=== PATIENT | male | born 1980 | race Caucasian/White ===

== ENCOUNTER → 2016-11-03 | Outpatient (REF) | payer BC ==
[2016-11-03 12:19] LABS: ALBUMIN 4.3 GM/DL (3.2-5.2); ALBUMIN/GLOBULIN RATIO 1.39 (1.00-1.93); ALKALINE PHOSPHATASE 75 U/L (45-117); ALT/SGPT 25 U/L (12-78); ANION GAP 7 MEQ/L (8-16); AST/SGOT 14 U/L (15-37); BILIRUBIN,TOTAL 0.9 MG/DL (0.2-1.0); BLOOD UREA NITROGEN 12 MG/DL (7-18); CALCIUM LEVEL 9.2 MG/DL (8.5-10.1); CARBON DIOXIDE LEVEL 32 MEQ/L (21-32); CHLORIDE LEVEL 104 MEQ/L (98-107); CHOLESTEROL LEVEL 208 MG/DL (<200); CREATININE FOR GFR 0.78 MG/DL (0.70-1.30); GLOMERULAR FILTRATION RATE > 60.0 (>60); GLUCOSE, FASTING 102 MG/DL (70-105); SODIUM LEVEL 143 MEQ/L (136-145); TOTAL PROTEIN 7.4 GM/DL (6.4-8.2); TRIGLYCERIDES LEVEL 166 MG/DL (<150)
== END ==
LOC: M SFHCPLAZ 09:21
PROVIDERS: ATTEND Physician Assistant
DX: E78.4 Other hyperlipidemia (principal)

== ENCOUNTER → 2019-01-28 | Outpatient (CLI) | payer BC ==
--- NOTE | 2019-01-28 12:08 | REP ---
LUMBAR SPINE SERIES: Five views. HISTORY: Pain. No known injury. No comparison radiographs. FINDINGS: There is straightening of the normal lumbar lordosis. Lumbar vertebral body heights are preserved. There is degenerative disc narrowing at L3-4 and to a lesser extent L4-5. Discogenic spurring is seen anteriorly at the L3-4 level. Some bilateral L3-4 discogenic spurring is seen as well. There is no evidence of spondylolysis or spondylolisthesis. Sacrum and SI joints appear intact. Psoas margins are symmetric. There are clips in right upper quadrant post cholecystectomy. Some respiratory motion artifact is seen. IMPRESSION: Degenerative disc disease at L3-4 and to a lesser extent, L4-5. No acute bony abnormality. Straightening. Electronically Signed by Angel Hirsch MD 01/28/2019 12:18 P
== END ==
LOC: M WUC 09:46
PROVIDERS: ATTEND Nurse Practitioner Family
DX: M51.36 Other intervertebral disc degeneration, lumbar region (principal)

== ENCOUNTER → 2019-05-13 | Outpatient (REF) | payer BC ==
[2019-05-13 18:01] LABS: APPEARANCE, URINE CLEAR (CLEAR); BACTERIA, URINE AUTO NEGATIVE (NEGATIVE); BILIRUBIN, URINE AUTO NEGATIVE (NEGATIVE); BLOOD, URINE BLOOD NEGATIVE (NEGATIVE); COLOR, URINE YELLOW (YELLOW); GLUCOSE, URINE (UA) AUTO NEGATIVE (NEGATIVE); KETONE, URINE AUTO NEGATIVE (NEGATIVE); LEUKOCYTE ESTERASE, URINE AUTO NEGATIVE (NEGATIVE); MUCUS, URINE SMALL (NEGATIVE); NITRITE, URINE AUTO NEGATIVE (NEGATIVE); PROTEIN, URINE AUTO NEGATIVE (NEGATIVE); RBC, URINE AUTO 0 /HPF (0-3); SPECIFIC GRAVITY URINE AUTO 1.024 (1.002-1.035); SQUAMOUS EPITHELIAL CELL UR AU 0 /HPF (0-6); UROBILINOGEN, URINE AUTO 0.2 mg/dL (0.0-2.0); WBC, URINE AUTO 0 /HPF (0-3)
[2019-05-13 18:47] LABS: BLOOD UREA NITROGEN 12 MG/DL (7-18); CALCIUM LEVEL 8.5 MG/DL (8.5-10.1); CARBON DIOXIDE LEVEL 31 MEQ/L (21-32); CHLORIDE LEVEL 104 MEQ/L (98-107); CHOLESTEROL LEVEL 197 MG/DL (<200); CHOLESTEROL RISK RATIO 5.969 (<5); CREATININE FOR GFR 0.75 MG/DL (0.70-1.30); GLOMERULAR FILTRATION RATE > 60.0 (>60); GLUCOSE, FASTING 99 MG/DL (70-100); HDL CHOLESTEROL 33 MG/DL (>40); NON-HDL-C 164 MG/DL; POTASSIUM SERUM 4.4 MEQ/L (3.5-5.1); SODIUM LEVEL 139 MEQ/L (136-145); TRIGLYCERIDES LEVEL 634 MG/DL (<150)
== END ==
LOC: M SFHCPLAZ 14:52
PROVIDERS: ATTEND Obstetrics & Gynecology
DX: E78.49 Other hyperlipidemia (principal); Z13.1 Encounter for screening for diabetes mellitus; I10 Essential (primary) hypertension

== ENCOUNTER → 2019-06-14 | Outpatient (CLI) | payer BC ==
--- NOTE | 2019-06-18 08:35 | SLEEPHOME ---
DATE OF STUDY: 06/14/2019 ORDERED BY: Dr. Kaminski Diagnostic home sleep testing was performed due to concern for the obstructive sleep apnea syndrome in this patient with comorbidity of hypertension. For testing, a nocturnal T3 respiratory monitoring device was used. Continuous record was made of pulse, oxygen saturation, airflow, chest and abdominal strain and body position. 9 hours and 59 minutes of data were reviewed. 9 hours and 52 minutes were marked as time in bed. During the interval marked time in bed, there were 178 respiratory events identified of 10 seconds in duration or greater for a respiratory event index of 18. The events were obstructive. Baseline pulse rate 69, pulse rate ranged 52-102. Baseline saturation was 93%, saturations fell as low as 70%. Testing was performed in both the supine and nonsupine positions. IMPRESSION: Abnormal home sleep testing with repetitive respiratory events and oxygen desaturations to 70% with a respiratory event index of 18 is consistent with the obstructive sleep apnea syndrome. RECOMMENDATION: The patient should be encouraged to undergo formal sleep evaluation and referral to facilitate this. Likely, pressure titration will be necessary.
== END ==
LOC: M SLEEP HO 09:55
PROVIDERS: ATTEND Obstetrics & Gynecology
DX: I10 Essential (primary) hypertension (principal)

== ENCOUNTER → 2019-08-12 | Outpatient (CLI) | payer BC ==
--- NOTE | 2019-08-16 17:20 | SLEEPCENT ---
DATE OF PROCEDURE: 08/12/2019 ORDERED BY: CANELO Pena Nocturnal polysomnography was performed for evaluation of sleep physiology in this patient with a history of excessive somnolence, snoring, nonrestorative sleep, and abnormal home testing who has comorbidities of hypertension. 8 hours and 15 minutes of data were reviewed. There were 423.5 minutes of sleep identified. Sleep latency was prolonged at 54.5 minutes. Rapid eye movement (REM) latency was normal at 64 minutes. Sleep architecture was fairly good with 4 REM cycles. There was some fragmentation noted. Overall sleep efficiency was 86.3%. The electrocardiogram showed a sinus rhythm with an average heart rate of 68 beats per minute. Rate ranged 60-82. Electroencephalogram (EEG) showed mild coarsening in the background of non-REM stages. No focal events identified. There were 173 respiratory events identified of 10 seconds in duration or greater for an apnea-hypopnea index of 24.5. The events were primarily obstructive not exclusive to sleep stage nor body posture. Arousals from respiratory events were seen 2.6 times per hour and oxygen desaturations were seen into the 70s. There was minimal activity in the limb leads and remaining measures of sleep physiology were normal. IMPRESSION: Obstructive sleep apnea syndrome (G47.33). Apnea-hypopnea index 24.5. RECOMMENDATIONS: The patient should be encouraged to return to the sleep disorder center for pressure therapy. In the interim, alcohol and sedative avoidance should be practiced and caution exercised during operation of motor vehicles.
== END ==
LOC: M SLEEP 20:00
PROVIDERS: ATTEND Nurse Practitioner Family
DX: G47.33 Obstructive sleep apnea (adult) (pediatric) (principal)

== ENCOUNTER → 2020-03-05 | Outpatient (CLI) | payer BC ==
--- NOTE | 2020-03-10 10:27 | SLEEPCENT ---
NOCTURNAL POLYSOMNOGRAPHY DATE: 03/05/2020 ORDERED BY: MARLEN Pena Nocturnal polysomnography was performed for the titration of pressure therapy in this patient with obstructive sleep apnea syndrome with apnea-hypopnea index of 24.5. For testing a ResMed AirFit F20 full face mask of medium size was used, 4 cm of water pressure were applied to the circuit, and the lights were extinguished. 7 hours and 28 minutes of data were reviewed. There were 376 minutes of sleep identified. Sleep latency was prolonged at 52.5 minutes. REM latency was short at 55 minutes. Sleep architecture was good with three REM cycles noted. Overall sleep efficiency was 85%. The electrocardiogram showed a sinus rhythm with an average heart rate of 62 beats per minute. Rate range 55 to 85. EEG showed normal waveforms for wake and sleep stages. Respiratory events were best palliated with CPAP at a pressure of +12 with some minor limb activity, particularly early in the study. The limb movement arousal index on this occasion was 2.5. IMPRESSION: Obstructive sleep apnea syndrome (G47.33). RECOMMENDATION: Nightly use of pressure therapy 12 cm of water.
== END ==
LOC: M SLEEP 20:00
PROVIDERS: ATTEND Nurse Practitioner Family
DX: G47.33 Obstructive sleep apnea (adult) (pediatric) (principal)

== ENCOUNTER → 2020-03-13 | Outpatient (CLI) | payer SELFPAY ==
[~2020-03-13] MED LIST: ALLE1TAB23; CEPH500C PO; OLME20TA2
== END ==
LOC: M LABSMTC 13:11
PROVIDERS: ATTEND Pediatrics
DX: Z20.822 Contact with and (suspected) exposure to COVID-19 (principal)

== ENCOUNTER 2020-03-27 17:13 | Emergency (ER) | payer BC ==
[~2020-03-27] VITALS: Ht 185.4 cm; Wt 123.6 kg
[2020-03-27] MEDS ORDERED: OLME20TA2 (17:35)
[2020-03-27] MEDS ORDERED: ALLE1TAB23 (17:35)
--- NOTE | 2020-03-27 18:07 | REP ---
INDICATION: injury to thumb from a ladder COMPARISON: None. TECHNIQUE: Four views right 1st digit. FINDINGS: There is dorsal dislocation of the 1st distal phalanx. No fracture is seen. IMPRESSION: Dorsal dislocation of the 1st distal phalanx. <Electronically signed by Coleman Azul > 03/27/20 [id number]
[2020-03-27] MEDS ORDERED: LIDOCAINE 1% MDV 20ML VIAL SC ONE (19:30)
[2020-03-27] MEDS ORDERED: cefTRIAXone SOD 1 GM in D5W MINI-BAG PLUS 50 ML IV ONE (19:45)
[2020-03-27] MEDS ORDERED: BOOSTRIX/ADACEL VACCINE (DIPHTH/PERTUSS/ACELL/TETANUS) 0.5ML SYR IM ONE (19:45)
[2020-03-27] MEDS ORDERED: cefTRIAXone SOD 1GM VIAL (J0696 PER 250MG) IM ONE (20:15)
[2020-03-27] MEDS ORDERED: LIDOCAINE 1% SDV 5ML VIAL DILUENT ONE (20:15)
[2020-03-27] MEDS ORDERED: NEOSPORIN OINT 0.9 GM PKT TOP ONE (20:15)
[2020-03-27] MEDS ORDERED: ACETAMINOPHEN 500 MG TAB PO ONE (20:45)
--- NOTE | 2020-03-27 20:48 | REPVR ---
PROCEDURE INFORMATION: Exam: XR Left Finger(s) Exam date and time: 03/27/2020 8:36 PM Age: 40 years old Clinical indication: Other: Post reduction; Additional info: Post reduction thumb TECHNIQUE: Imaging protocol: XR Left fingers. Views: Minimum 2 views. COMPARISON: CR Fingers 03/27/2020 5:42 PM FINDINGS: Anatomic reduction of the prior IP joint dislocation of the thumb, with osseous structures aligned normally. No fracture fragment or asymmetric joint space widening to suggest interposed soft tissue. MCP and CMC joints of the thumb show normal alignment. IMPRESSION: Anatomic alignment of the thumb dislocation with no residual deformity or fracture Electronically signed by: Anirudh Hogan On 03/27/2020 20:48:23 PM
[2020-03-27] MEDS ORDERED: CEPH500C PO (20:51)
[2020-03-27 21:25] VITALS: BP 131/77
== END 2020-03-27 21:37 | disposition home or self-care (01) ==
LOC: M ED 17:13
DX: S63.102A Unspecified subluxation of left thumb, initial encounter (principal); S61.012A Laceration without foreign body of left thumb without damage to nail, initial encounter; W11.XXXA Fall on and from ladder, initial encounter; Y92.018 Other place in single-family (private) house as the place of occurrence of the external cause; I10 Essential (primary) hypertension; Z79.899 Other long term (current) drug therapy
CPT/HCPCS: 12001; 26641; 73140; 90471; 90715; 96372; 99283; J0696

== ENCOUNTER → 2020-04-07 | Outpatient (REF) | payer BC | LOC: M SFHCPLAZ 15:53 | PROVIDERS: ATTEND Family Medicine | DX: Z13.220 Encounter for screening for lipoid disorders (principal); Z13.1 Encounter for screening for diabetes mellitus ==

== ENCOUNTER → 2020-04-20 | Outpatient (REF) | payer BC ==
[2020-04-20 16:05] LABS: CHOLESTEROL LEVEL 206 MG/DL (<200); CHOLESTEROL RISK RATIO 6.058 (<5); HDL CHOLESTEROL 34 MG/DL (>40); NON-HDL-C 172 MG/DL; TRIGLYCERIDES LEVEL 411 MG/DL (<150)
[2020-04-20 19:30] LABS: HEMOGLOBIN A1c 6.2 %
== END ==
LOC: M SFHCPLAZ 11:33
PROVIDERS: ATTEND Family Medicine
DX: Z13.220 Encounter for screening for lipoid disorders (principal); Z13.1 Encounter for screening for diabetes mellitus

== ENCOUNTER → 2020-10-15 | Outpatient (CLI) | payer BC ==
[2020-10-15 14:10] LABS: BASO % 0.4 % (0.0-1.0); EOS # 0.1 10^3/uL (0.0-0.5); EOS % 1.8 % (0.0-3.0); HEMATOCRIT 45.5 % (42.0-52.0); HEMOGLOBIN 14.9 g/dl (13.5-17.5); LYMPH # 2.3 10^3/uL (1.5-5.0); LYMPH % 30.8 % (24.0-44.0); MEAN CORPUSCULAR HEMOGLOBIN 30.8 pg (27.0-33.0); MEAN CORPUSCULAR HGB CONC 32.7 g/dl (32.0-36.5); MEAN CORPUSCULAR VOLUME 94.2 fl (80.0-96.0); MONO # 0.6 10^3/uL (0.0-0.8); MONO % 7.6 % (2.0-8.0); NEUTROPHILS # 4.4 10^3/uL (1.5-8.5); PLATELET COUNT, AUTOMATED 205 10^3/uL (150-450); RED BLOOD COUNT 4.83 10^6/uL (4.30-6.10); WHITE BLOOD COUNT 7.4 10^3/uL (4.0-10.0)
[2020-10-15 15:11] LABS: ERYTHROCYTE SEDIMENTATION RATE 6 mm/hr (0-15)
[2020-10-15 16:38] LABS: ALT/SGPT 40 U/L (12-78); BILIRUBIN,TOTAL 0.7 MG/DL (0.2-1.0); BLOOD UREA NITROGEN 13 MG/DL (7-18); CALCIUM LEVEL 9.4 MG/DL (8.5-10.1); CARBON DIOXIDE LEVEL 32 MEQ/L (21-32); CHLORIDE LEVEL 104 MEQ/L (98-107); CREATININE FOR GFR 0.73 MG/DL (0.70-1.30); GLOMERULAR FILTRATION RATE > 60.0 (>60); GLUCOSE, FASTING 108 MG/DL (70-100); LIPASE 147 U/L (73-393); POTASSIUM SERUM 4.7 MEQ/L (3.5-5.1); SODIUM LEVEL 139 MEQ/L (136-145); TOTAL PROTEIN 6.9 GM/DL (6.4-8.2)
== END ==
LOC: M PLALAB 10:22
PROVIDERS: ATTEND Physician Assistant
DX: R10.33 Periumbilical pain (principal)

== ENCOUNTER → 2021-01-13 | Outpatient (CLI) | payer BC ==
[2021-01-13 11:41] LABS: BASO % 0.3 % (0.0-1.0); EOS # 0.1 10^3/uL (0.0-0.5); EOS % 1.4 % (0.0-3.0); HEMATOCRIT 43.4 % (42.0-52.0); HEMOGLOBIN 14.7 g/dl (13.5-17.5); LYMPH # 1.9 10^3/uL (1.5-5.0); LYMPH % 32.1 % (24.0-44.0); MEAN CORPUSCULAR HEMOGLOBIN 30.6 pg (27.0-33.0); MEAN CORPUSCULAR HGB CONC 33.9 g/dl (32.0-36.5); MEAN CORPUSCULAR VOLUME 90.4 fl (80.0-96.0); MONO # 0.4 10^3/uL (0.0-0.8); MONO % 6.9 % (2.0-8.0); NEUTROPHILS # 3.5 10^3/uL (1.5-8.5); PLATELET COUNT, AUTOMATED 182 10^3/uL (150-450); WHITE BLOOD COUNT 5.9 10^3/uL (4.0-10.0)
[2021-01-13 12:48] LABS: FREE T4 0.89 NG/DL (0.76-1.46); THYROID STIMULATING HORMONE 0.563 uIU/ML (0.358-3.740)
[2021-01-15 19:07] LABS: Lyme Disease IgG/IgM Antibodie <0.91 ISR (0.00-0.90); Lyme Disease IgM Ab Quantitati <0.80 index (0.00-0.79)
== END ==
LOC: M PLALAB 09:17
PROVIDERS: ATTEND Student in an Organized Health Care Education/Training Program
DX: R53.83 Other fatigue (principal)

== ENCOUNTER → 2021-01-13 | Outpatient (REF) | payer BC | LOC: M SFHCPLAZ 09:03 | PROVIDERS: ATTEND Family Medicine | DX: R53.83 Other fatigue (principal) ==

== ENCOUNTER → 2021-03-26 | Outpatient (CLI) | payer BC | LOC: M PLAIMG 12:01 | PROVIDERS: ATTEND Family Medicine | DX: M77.11 Lateral epicondylitis, right elbow (principal) ==

== ENCOUNTER → 2021-04-15 | Outpatient (CLI) | payer BC ==
[~2021-04-15] MED LIST changes: -ALLE1TAB23; +ALLE1TAB23 PO; +LEXA5TAB13 PO; -OLME20TA2; +OLME20TA2 PO; +VALA500T5 PO; +VITMTA PO
[2021-04-15 11:11] LABS: APPEARANCE, URINE CLEAR (CLEAR); BACTERIA, URINE AUTO NEGATIVE (NEGATIVE); BILIRUBIN, URINE AUTO NEGATIVE (NEGATIVE); BLOOD, URINE BLOOD NEGATIVE (NEGATIVE); COLOR, URINE YELLOW (YELLOW); GLUCOSE, URINE (UA) AUTO NEGATIVE (NEGATIVE); KETONE, URINE AUTO NEGATIVE (NEGATIVE); LEUKOCYTE ESTERASE, URINE AUTO NEGATIVE (NEGATIVE); MUCUS, URINE SMALL (NEGATIVE); NITRITE, URINE AUTO NEGATIVE (NEGATIVE); PROTEIN, URINE AUTO NEGATIVE (NEGATIVE); RBC, URINE AUTO 1 /HPF (0-3); SPECIFIC GRAVITY URINE AUTO 1.024 (1.002-1.035); SQUAMOUS EPITHELIAL CELL UR AU 0 /HPF (0-6); UROBILINOGEN, URINE AUTO 0.2 mg/dL (0.0-2.0); WBC, URINE AUTO 0 /HPF (0-3)
[2021-04-15 11:13] LABS: HEMATOCRIT 43.9 % (42.0-52.0); HEMOGLOBIN 14.7 g/dl (13.5-17.5); MEAN CORPUSCULAR HEMOGLOBIN 30.5 pg (27.0-33.0); MEAN CORPUSCULAR HGB CONC 33.5 g/dl (32.0-36.5); MEAN CORPUSCULAR VOLUME 91.1 fl (80.0-96.0); PLATELET COUNT, AUTOMATED 162 10^3/uL (150-450); RED BLOOD COUNT 4.82 10^6/uL (4.30-6.10); WHITE BLOOD COUNT 5.9 10^3/uL (4.0-10.0)
[2021-04-15 11:41] LABS: ALBUMIN 3.9 GM/DL (3.2-5.2); ALT/SGPT 38 U/L (12-78); BILIRUBIN,TOTAL 0.5 MG/DL (0.2-1.0); BLOOD UREA NITROGEN 12 MG/DL (7-18); CARBON DIOXIDE LEVEL 34 MEQ/L (21-32); CHLORIDE LEVEL 105 MEQ/L (98-107); CREATININE FOR GFR 0.72 MG/DL (0.70-1.30); GLOMERULAR FILTRATION RATE > 60.0 (>60); GLUCOSE, FASTING 132 MG/DL (70-100); POTASSIUM SERUM 4.3 MEQ/L (3.5-5.1); SODIUM LEVEL 141 MEQ/L (136-145); TOTAL PROTEIN 6.9 GM/DL (6.4-8.2)
== END ==
LOC: M RAD 10:00
PROVIDERS: ATTEND Urology
DX: N50.82 Scrotal pain (principal); N50.3 Cyst of epididymis

== ENCOUNTER → 2021-04-21 | Outpatient (CLI) | payer BC | LOC: M LAB 18:05 | PROVIDERS: ATTEND Urology | DX: N50.82 Scrotal pain (principal) ==

== ENCOUNTER → 2021-04-21 | Outpatient (CLI) | payer BC | LOC: M LABSMTC 09:09 | PROVIDERS: ATTEND Anesthesiology | DX: Z01.812 Encounter for preprocedural laboratory examination (principal); Z20.822 Contact with and (suspected) exposure to COVID-19 ==

== ENCOUNTER 2021-04-26 12:10 | Day surgery (SDC) | payer BC ==
[~2021-04-26] VITALS: Ht 182.9 cm; Wt 126.3 kg
[~2021-04-26 12:10] MED LIST changes: +LIDOCAINE 1% MDV 20ML VIAL SQ PRN; +LR 1,000 ML IV ONE; +ceFAZolin SOD 2 GM in IV 1 EA IV ONE
[2021-04-26] MEDS ORDERED: ACETAMINOPHEN *IV* 1,000 MG in IV 1 EA IV ONE (12:20)
[2021-04-26] MEDS ORDERED: propofoL 200 MG/20 ML VIAL As Ordered ONE (15:54)
[2021-04-26] MEDS ORDERED: LIDOCAINE 2% 100MG/5ML SDV (FOR ANES.) As Ordered ONE (15:54)
[2021-04-26] MEDS ORDERED: fentaNYL 250 MCG/5 ML INJECTION As Ordered ONE (15:54)
[2021-04-26] MEDS ORDERED: ONDANSETRON 4MG/2ML VIAL As Ordered ONE (15:54)
[2021-04-26] MEDS ORDERED: MIDAZOLAM INJ 2MG/2ML VIAL (J2250 PER 1MG) As Ordered ONE (15:54)
[2021-04-26] MEDS ORDERED: dexameTHASONE 4 MG/ML 1ML VIAL (J1100 PER 1MG) As Ordered ONE (15:54)
[2021-04-26] MEDS ORDERED: BACITRACIN OINTMENT 30GM TUBE As Ordered ONE (17:04)
[2021-04-26] MEDS ORDERED: BUPIVACAINE HCL 0.25% 30ML VIAL As Ordered ONE (17:05)
[2021-04-26] MEDS ORDERED: LIDOCAINE 1% SDV 30ML VIAL As Ordered ONE (17:05)
[2021-04-26] MEDS ORDERED: ACETAMINOPHEN 1000MG 100ML IV BTL (OFIRMEV) (J0131 PER 10MG) As Ordered ONE (18:03)
[2021-04-26] MEDS ORDERED: BACTDSTA PO (18:11)
[2021-04-26] MEDS ORDERED: HYDR-3713 PO (18:11)
[2021-04-26] MEDS ORDERED: oxyCODONE 5MG TAB PO PRN (18:20)
[2021-04-26] MEDS ORDERED: fentaNYL 100 MCG/2 ML INJECTION IV PRN (18:20)
[2021-04-26] MEDS ORDERED: LR 1,000 ML IV SCH (18:20)
[2021-04-26] MEDS ORDERED: HYDROMORPHONE HCL 0.5 MG/ 0.5 ML SYRINGE (J1170 PER 1) IV PRN (18:20)
[2021-04-26] MEDS ORDERED: ONDANSETRON 4MG/2ML VIAL IV PRN (18:20)
[2021-04-26 19:10] VITALS: BP 134/83
== END 2021-04-26 19:28 | disposition home or self-care (01) ==
LOC: M SDC 12:10
PROVIDERS: ATTEND Urology
DX: N50.3 Cyst of epididymis (principal); I10 Essential (primary) hypertension; G47.33 Obstructive sleep apnea (adult) (pediatric); Z79.899 Other long term (current) drug therapy
CPT/HCPCS: 54830; 88305; J0131; J0690; J1100; J2250; J2405; J3010

== ENCOUNTER → 2021-10-13 | Outpatient (CLI) | payer BC ==
[~2021-10-13] MED LIST changes: +BACTDSTA PO; +HYDR-3713 PO; -LIDOCAINE 1% MDV 20ML VIAL SQ PRN; -LR 1,000 ML IV ONE; -ceFAZolin SOD 2 GM in IV 1 EA IV ONE
[2021-10-13 10:07] LABS: CHOLESTEROL LEVEL 192 MG/DL (<200); CHOLESTEROL RISK RATIO 5.818 (<5); HDL CHOLESTEROL 33 MG/DL (>40); NON-HDL-C 159 MG/DL; TRIGLYCERIDES LEVEL 403 MG/DL (<150)
[2021-10-13 10:54] LABS: HEMOGLOBIN A1c 6.5 %
== END ==
LOC: M LAB 08:18
PROVIDERS: ATTEND Student in an Organized Health Care Education/Training Program
DX: Z13.1 Encounter for screening for diabetes mellitus (principal)

== ENCOUNTER → 2022-03-18 | Outpatient (REF) | payer OTHER | LOC: M SFHCPLAZ 08:49 | PROVIDERS: ATTEND Family Medicine | DX: Z53.9 Procedure and treatment not carried out, unspecified reason (principal) ==

== ENCOUNTER → 2022-03-18 | Outpatient (CLI) | payer OTHER ==
[2022-03-18 14:39] LABS: BASO % 0.3 % (0.0-1.0); EOS # 0.1 10^3/uL (0.0-0.5); EOS % 0.9 % (0.0-3.0); HEMATOCRIT 46.6 % (42.0-52.0); HEMOGLOBIN 15.5 g/dl (13.5-17.5); LYMPH # 2.2 10^3/uL (1.5-5.0); LYMPH % 33.4 % (24.0-44.0); MEAN CORPUSCULAR HEMOGLOBIN 31.3 pg (27.0-33.0); MEAN CORPUSCULAR HGB CONC 33.3 g/dl (32.0-36.5); MEAN CORPUSCULAR VOLUME 94.1 fl (80.0-96.0); MONO # 0.5 10^3/uL (0.0-0.8); MONO % 7.6 % (2.0-8.0); NEUTROPHILS # 3.8 10^3/uL (1.5-8.5); NEUTROPHILS % 57.5 % (36.0-66.0); PLATELET COUNT, AUTOMATED 171 10^3/uL (150-450); RED BLOOD COUNT 4.95 10^6/uL (4.30-6.10); WHITE BLOOD COUNT 6.6 10^3/uL (4.0-10.0)
[2022-03-18 15:01] LABS: BLOOD UREA NITROGEN 16 MG/DL (9-23); CALCIUM LEVEL 8.8 MG/DL (8.5-10.1); CARBON DIOXIDE LEVEL 33 MMOL/L (20-31); CHLORIDE LEVEL 104 MMOL/L (98-107); CHOLESTEROL LEVEL 155 MG/DL (<200); CREATININE FOR GFR 0.67 MG/DL (0.70-1.30); GLOMERULAR FILTRATION RATE > 60.0 (>60); GLUCOSE, FASTING 121 MG/DL (60-100); HDL CHOLESTEROL 38.7 MG/DL (>40); LDL CHOLESTEROL 74.1 MG/DL (<100); NON-HDL-C 116 MG/DL; POTASSIUM SERUM 5.1 MMOL/L (3.5-5.1); SODIUM LEVEL 139 MMOL/L (136-145); TRIGLYCERIDES LEVEL 211 MG/DL (<150)
[2022-03-18 16:18] LABS: HEMOGLOBIN A1c 6.6 % (4.0-6.0)
== END ==
LOC: M PLALAB 09:15
PROVIDERS: ATTEND Student in an Organized Health Care Education/Training Program
DX: Z00.00 Encounter for general adult medical examination without abnormal findings (principal); Z13.0 Encounter for screening for diseases of the blood and blood-forming organs and certain disorders involving the immune mechanism; E11.9 Type 2 diabetes mellitus without complications; Z13.220 Encounter for screening for lipoid disorders; R20.2 Paresthesia of skin

== ENCOUNTER → 2022-11-04 | Outpatient (REF) | LOC: M EMP 09:02 | PROVIDERS: ATTEND Family Medicine | DX: Z11.52 Encounter for screening for COVID-19 (principal) ==

== ENCOUNTER 2023-02-10 14:20 | Outpatient (RCR) | payer BC ==
[~2023-02-10 14:20] MED LIST changes: -ALLE1TAB23 PO; +FEXO-157 PO; -OLME20TA2 PO; +OLME20TA50 PO
== END 2023-02-19 ==
LOC: M PT 14:20
PROVIDERS: ATTEND Student in an Organized Health Care Education/Training Program
DX: S46.812A Strain of other muscles, fascia and tendons at shoulder and upper arm level, left arm, initial encounter (principal)

== ENCOUNTER → 2023-07-11 | Outpatient (CLI) | payer OTHER ==
[2023-07-11 18:04] LABS: HEMOGLOBIN A1c 5.8 % (4.0-6.0)
[2023-07-11 18:18] LABS: ALBUMIN 4.3 G/DL (3.2-5.2); ALKALINE PHOSPHATASE 98 U/L (46-116); ALT/SGPT 39 U/L (7.0-40); AST/SGOT 21 U/L (<34); BLOOD UREA NITROGEN 18 MG/DL (9-23); CALCIUM LEVEL 8.8 MG/DL (8.5-10.1); CARBON DIOXIDE LEVEL 28 MMOL/L (20-31); CHLORIDE LEVEL 104 MMOL/L (98-107); CHOLESTEROL LEVEL 127 MG/DL (<200); CHOLESTEROL RISK RATIO 4.36 (<5); CREATININE FOR GFR 0.76 MG/DL (0.70-1.30); GLOMERULAR FILTRATION RATE > 60.0 (>60); GLUCOSE, FASTING 83 MG/DL (60-100); HDL CHOLESTEROL 29.1 MG/DL (>40); LDL CHOLESTEROL 44.7 MG/DL (<100); NON-HDL-C 97.9 MG/DL; SODIUM LEVEL 139 MMOL/L (136-145); TOTAL PROTEIN 6.7 G/DL (5.7-8.2); TRIGLYCERIDES LEVEL 266 MG/DL (<150)
== END ==
LOC: M PLALAB 15:44
PROVIDERS: ATTEND Student in an Organized Health Care Education/Training Program
DX: E78.1 Pure hyperglyceridemia (principal); I10 Essential (primary) hypertension; E11.9 Type 2 diabetes mellitus without complications

== ENCOUNTER → 2023-11-24 | Outpatient (CLI) | payer OTHER ==
[~2023-11-24] MED LIST changes: -FEXO-157 PO; +FEXO-63 PO
[2023-11-24 08:11] LABS: BASO % 0.3 % (0.0-1.0); EOS # 0.1 10^3/uL (0.0-0.5); EOS % 1.2 % (0.0-3.0); HEMATOCRIT 44.8 % (42.0-52.0); HEMOGLOBIN 15.2 g/dl (13.5-17.5); LYMPH # 1.9 10^3/uL (1.5-5.0); LYMPH % 30.8 % (24.0-44.0); MEAN CORPUSCULAR HEMOGLOBIN 31.5 pg (27.0-33.0); MEAN CORPUSCULAR HGB CONC 33.9 g/dl (32.0-36.5); MEAN CORPUSCULAR VOLUME 92.8 fl (80.0-96.0); MONO # 0.5 10^3/uL (0.0-0.8); MONO % 8.8 % (2.0-8.0); NEUTROPHILS # 3.5 10^3/uL (1.5-8.5); NEUTROPHILS % 58.7 % (36.0-66.0); PLATELET COUNT, AUTOMATED 150 10^3/uL (150-450); RED BLOOD COUNT 4.83 10^6/uL (4.30-6.10)
[2023-11-24 08:33] LABS: HEMOGLOBIN A1c 5.8 % (4.0-6.0)
[2023-11-24 08:46] LABS: BLOOD UREA NITROGEN 20 MG/DL (9-23); CALCIUM LEVEL 8.9 MG/DL (8.5-10.1); CARBON DIOXIDE LEVEL 31 MMOL/L (20-31); CHLORIDE LEVEL 106 MMOL/L (98-107); CHOLESTEROL LEVEL 138 MG/DL (<200); CHOLESTEROL RISK RATIO 4.11 (<5); CREATININE FOR GFR 0.62 MG/DL (0.70-1.30); GLOMERULAR FILTRATION RATE > 60.0 (>60); GLUCOSE, FASTING 101 MG/DL (60-100); HDL CHOLESTEROL 33.5 MG/DL (>40); LDL CHOLESTEROL 74.3 MG/DL (<100); NON-HDL-C 104.5 MG/DL; POTASSIUM SERUM 4.4 MMOL/L (3.5-5.1); SODIUM LEVEL 139 MMOL/L (136-145); TRIGLYCERIDES LEVEL 151 MG/DL (<150)
== END ==
LOC: M LAB 07:07
PROVIDERS: ATTEND Student in an Organized Health Care Education/Training Program
DX: E11.9 Type 2 diabetes mellitus without complications (principal); I10 Essential (primary) hypertension; E78.5 Hyperlipidemia, unspecified

== ENCOUNTER → 2023-12-04 | Outpatient (CLI) | payer OTHER | LOC: M PLAIMG 14:06 | PROVIDERS: ATTEND Student in an Organized Health Care Education/Training Program | DX: R06.89 Other abnormalities of breathing (principal); M25.512 Pain in left shoulder; J98.6 Disorders of diaphragm ==

== ENCOUNTER → 2024-03-04 | Outpatient (CLI) | payer OTHER | LOC: M RAD 10:52 | PROVIDERS: ATTEND Student in an Organized Health Care Education/Training Program | DX: J98.6 Disorders of diaphragm (principal) ==

== ENCOUNTER → 2024-03-14 | Outpatient (CLI) | payer OTHER ==
[2024-03-14 07:14] LABS: HEMOGLOBIN A1c 5.6 % (4.0-6.0)
== END ==
LOC: M LAB 06:36
PROVIDERS: ATTEND Student in an Organized Health Care Education/Training Program
DX: E11.9 Type 2 diabetes mellitus without complications (principal)

== ENCOUNTER → 2024-09-09 | Outpatient (CLI) | payer OTHER ==
[~2024-09-09] MED LIST changes: +ISOVUE-370 76% 100 ML VIAL As Ordered ONE
== END ==
LOC: M RAD 15:45
PROVIDERS: ATTEND Student in an Organized Health Care Education/Training Program
DX: M25.9 Joint disorder, unspecified (principal); J98.11 Atelectasis
CPT/HCPCS: 71260; 82565; Q9967

== ENCOUNTER → 2024-10-01 | Outpatient (CLI) | payer OTHER ==
[~2024-10-01] MED LIST changes: -ISOVUE-370 76% 100 ML VIAL As Ordered ONE
== END ==
LOC: M LAB 16:46
PROVIDERS: ATTEND Student in an Organized Health Care Education/Training Program
DX: Z00.00 Encounter for general adult medical examination without abnormal findings (principal)
CPT/HCPCS: 36415; G0103

== ENCOUNTER → 2024-10-17 | Outpatient (CLI) | payer OTHER ==
[~2024-10-17] MED LIST changes: +PROHANCE 279.3MG/ML 15ML VIAL As Ordered ONE; +PROHANCE 279.3MG/ML 5ML VIAL As Ordered ONE
== END ==
LOC: M RAD 07:44
PROVIDERS: ATTEND Student in an Organized Health Care Education/Training Program
DX: J98.6 Disorders of diaphragm (principal); M19.012 Primary osteoarthritis, left shoulder
CPT/HCPCS: 71552; A9576